=== PATIENT | female | born 1990 | race African-American/Black ===

== ENCOUNTER 2020-09-11 20:11 | Emergency (ER) | payer OTHER ==
[2020-09-11 20:54] LABS: Bilirubin 1+ (Negative); Blood, Urine 25 (Negative); Clarity Cloudy (Clear); Glucose, Urine (Dipstick) Normal (Negative); Ketone, Urine 150 mg/dL (Negative); Leukocyte 500 (Negative); Nitrite Negative (Negative); Protein, Urine (Dipstick) 30 mg/dl (Neg-Trace)
[2020-09-11 20:57] LABS: Pregnancy Test - Urine (BHCG) Negative (Negative); Pregu Control Background? CLEAR/WHITE (CLR/WHITE); Pregu Control Bar Appear? YES (CONTROL BAR)
[2020-09-11 21:07] LABS: Bacteria/HPF 2+ HPF (None Seen); Mucous/LPF 2+ LPF (<2+); WBC/HPF Greater Than 50 HPF (0-3)
== END 2020-09-11 21:19 | disposition home or self-care (01) ==
LOC: CSHERS 20:11
DX: N39.0 Urinary tract infection, site not specified (principal)
CPT/HCPCS: 81003; 81015; 81025; 99283

== ENCOUNTER 2022-11-19 12:00 | Inpatient (IN) | payer OTHER ==
[2022-11-20 11:16] LABS: Hemoglobin 10.5 g/dL (12.0-15.5); Platelet Count 276 10x3/uL (130-400)
[2022-11-20 11:58] LABS: HBSAg Index 0.14 S/CO (0-0.99); Hep B Surf Ag Non-Reactive S/CO (NonReactive); Syphilis Antibody Nonreactive (Nonreactive); Syphilis Antibody Index 0.06 S/CO (<1.00 Non-Reactive)
[2022-11-20] MEDS ORDERED: Tranexamic Acid 1,000 MG/10 ML VIAL IVP PRN (18:06)
[2022-11-20] MEDS ORDERED: Bicitra 30 ML UDCUP PO PRN (18:06)
[2022-11-20] MEDS ORDERED: Famotidine/PF 20 mg/2ml Vial SLOW IVP PRN (18:06)
[2022-11-20] MEDS ORDERED: Promethazine HCl 25 MG/ML VIAL IM PRN (18:06)
[2022-11-20] MEDS ORDERED: Misoprostol 200 MCG TAB PR PRN (18:06)
[2022-11-20] MEDS ORDERED: Carboprost 250 MCG/ML AMP IM PRN (18:06)
[2022-11-20] MEDS ORDERED: Methylergonovine 0.2 MG/ML VIAL IM PRN (18:06)
[2022-11-20] MEDS ORDERED: Acetaminophen 500 MG TAB PO PRN (18:06)
[2022-11-20] MEDS ORDERED: Ondansetron PF 4 MG/2 ML Vial IVP PRN (18:06)
[2022-11-20] MEDS ORDERED: fentaNYL 50 mcg/mL 1 mL Vial SLOW IVP PRN (18:06)
[2022-11-20] MEDS ORDERED: Butorphanol Tartrate 1 MG/ML VIAL SLOW IVP PRN (18:06)
[2022-11-20] MEDS ORDERED: Diphenoxylate HCl/Atropine Tablet PO PRN ×2 (18:06)
[2022-11-20] MEDS ORDERED: hydrALAZINE 20 MG/ML VIAL SLOW IVP PRN (18:06)
[2022-11-20] MEDS ORDERED: NS w/ Oxytocin 30 units 500 ML IV SCH (18:15)
[2022-11-20] MEDS ORDERED: CEFAZOLIN 2 GM in Sodium Chloride 0.9% 100 ML IVPB SCH (18:15)
[2022-11-21] MEDS: Lactated Ringer's 1,000 ML IV SCH ×3 (10:00→11:53)
[2022-11-21 11:07] VITALS: BMI 31.4
[2022-11-21] MEDS ORDERED: Meperidine HCl/PF 25 MG/ML VIAL SLOW IVP PRN (11:32)
[2022-11-21] MEDS ORDERED: Naloxone HCl 0.4 mg/ml Vial IV PRN (11:32)
[2022-11-21] MEDS ORDERED: Promethazine HCl 25 MG SUPP PR PRN (11:32)
[2022-11-21] MEDS ORDERED: Naloxone HCl 0.4 mg/ml Vial IVP PRN ×2 (11:32)
[2022-11-21] MEDS ORDERED: Promethazine HCl 25 MG/ML VIAL IM PRN (11:32)
[2022-11-21] MEDS ORDERED: Ondansetron HCl/PF 4 MG/2 ML Vial IVP PRN (11:32)
[2022-11-21] MEDS ORDERED: Fentanyl 100 MCG/2 ML VIAL SLOW IVP PRN (11:32)
[2022-11-21] MEDS ORDERED: Ondansetron PF 4 MG/2 ML Vial IVP PRN (11:32)
[2022-11-21] MEDS ORDERED: diphenhydrAMINE 50 MG/ML VIAL IVP PRN (11:32)
[2022-11-21] MEDS ORDERED: Moisturizing Cream (Eucerin) 113 GM JAR TOP PRN (11:32)
[2022-11-21] MEDS ORDERED: Communication Order-Pharmacy FS SCH (11:45)
[2022-11-21] MEDS ORDERED: Ketorolac Tromethamine 30 MG/ML VIAL IVP SCH (11:45)
[2022-11-21] MEDS ORDERED: CEFAZOLIN 2 GM VIAL ONE (11:48)
[2022-11-21] MEDS ORDERED: Famotidine/PF 20 mg/2ml Vial ONE (11:49)
[2022-11-21] MEDS: Ketorolac Tromethamine 30 MG/ML VIAL IVP PRN (15:07)
[2022-11-21] MEDS ORDERED: Simethicone Chewable 80 MG TAB PO PRN (18:59)
[2022-11-21] MEDS ORDERED: Lanolin Ointment 7 GM TUBE TOP PRN (18:59)
[2022-11-21] MEDS ORDERED: Bisacodyl 10 MG SUPP PR PRN (18:59)
[2022-11-21] MEDS ORDERED: Boostrix 0.5 ML (Tdap) VIAL (>/=7 yrs of age) IM ONE (18:59)
[2022-11-21] MEDS ORDERED: hydrALAZINE 20 MG/ML VIAL SLOW IVP PRN (18:59)
[2022-11-21] MEDS: Docusate 100 MG CAP PO SCH (22:51)
[2022-11-21] MEDS: Ferrous Sulfate 325 MG TAB PO SCH (22:51)
[2022-11-21] MEDS ORDERED: HYDROcodone/Acetaminophen 5/325 mg Tablet PO PRN (23:45)
[2022-11-22 04:34] LABS: Hemoglobin 8.4 g/dL (12.0-15.5); Red Blood Cell (RBC) Count 3.02 10x6/uL (3.90-5.03); White Blood Cell (WBC) Count 10.3 10x3/uL (3.5-10.5)
[2022-11-22 04:35] LABS: Mean Corpuscular HGB CONC 32.1 g/dL (32.0-36.0); Mean Corpuscular Hemoglobin 27.8 pg (27.0-33.0); Mean Corpuscular Volume 86.8 fl (81.6-98.3); Platelet Count 225 10x3/uL (150-450); RBC Distribution Width 15.9 % (11.5-14.5)
[2022-11-22] MEDS: Ketorolac Tromethamine 30 MG/ML VIAL IVP PRN (05:49)
[2022-11-22] MEDS: Ferrous Sulfate 325 MG TAB PO SCH ×2 (08:31→22:16)
[2022-11-22] MEDS: Docusate 100 MG CAP PO SCH ×2 (08:31→22:16)
[2022-11-22] MEDS: Prenatal Vitamin 1 TAB PO SCH (08:31)
[2022-11-22] MEDS: HYDROcodone/Acetaminophen 5/325 mg Tablet PO PRN ×3 (08:31→22:19)
[2022-11-22] MEDS ORDERED: Ibuprofen 800 MG TAB PO SCH (20:00)
[2022-11-22] MEDS: Ibuprofen 800 MG TAB PO SCH (22:16)
[2022-11-23] MEDS: Ibuprofen 800 MG TAB PO SCH (05:56)
[2022-11-23] MEDS: Docusate 100 MG CAP PO SCH (08:45)
[2022-11-23] MEDS: HYDROcodone/Acetaminophen 5/325 mg Tablet PO PRN (08:45)
[2022-11-23] MEDS: Ferrous Sulfate 325 MG TAB PO SCH (08:45)
[2022-11-23] MEDS: Prenatal Vitamin 1 TAB PO SCH (08:45)
[2022-11-23 11:40] VITALS: BP 111/58; TEMP 98.6
== END 2022-11-23 12:45 | disposition home or self-care (01) | DRG 788 ==
LOC: CSHLD 11-21 10:36 → CSHPED 11-21 15:35
PROVIDERS: ADMIT Obstetrics & Gynecology; ATTEND Obstetrics & Gynecology
PROC: 10D00Z1 Extraction of Products of Conception, Low, Open Approach (ICD-10-PCS; principal; 2022-11-21)
DX: O32.1XX0 Maternal care for breech presentation, not applicable or unspecified (principal); O34.13 Maternal care for benign tumor of corpus uteri, third trimester; D25.2 Subserosal leiomyoma of uterus; Z3A.39 39 weeks gestation of pregnancy; Z37.0 Single live birth
CPT/HCPCS: 36415; 51702; 85014; 85018; 85027; 85049; 86780; 86850; 86900; 86901; 87340; 88305; J1885; J2405; J3490; J7120; S0028